=== PATIENT | male | born 1975 | race Caucasian/White ===

== ENCOUNTER → 2016-10-06 | Day surgery (SDC) | payer BC ==
[~2016-10-06] VITALS: Ht 182.8 cm; Wt 93.0 kg
[~2016-10-06] MED LIST: OMNICEF300 MG PO; TYLENOL WITH CO1 TA1 PO
--- NOTE | ~2016-10-06 | O ---
[place], [place] OPERATIVE NOTE [id number] UNIT #: [id number] ROOM: DOCTOR: MITRA OCHOA MD BIRTHDATE: [birth year] DOS: 10/06/2016 PREOPERATIVE DIAGNOSIS: Right infraauricular cyst. POSTOPERATIVE DIAGNOSIS: Right infraauricular cyst. PROCEDURE: Excisional biopsy of right infraauricular cyst. SURGEON: Dr. Ochoa. ANESTHESIA: MAC, local. COMPLICATIONS: Tony Maxwell was taken to the OR for excisional biopsy of a presumed sebaceous cyst in the right infraauricular region. DESCRIPTION OF PROCEDURE: After IV sedation was established, the patient was positioned supine on the OR table. The right infraauricular region was prepped and draped in the standard sterile fashion. 2 mL of 1% lidocaine with 1:100,000 epinephrine was injected into the underlying subcutaneous tissue. An elliptical excision of overlying skin was incised. Dissection was continued for removal of what looks like a sebaceous cyst. The excised specimen was submitted to pathology for histologic analysis. Minor bleeding was controlled with electrical cautery. The wound was closed with a running 5-0 monofilament suture and a sterile dressing was applied. At the end of the case, all instrument and sponge counts were correct. The patient was awakened and transported to PACU in satisfactory condition. MITRA OCHOA MD CM:OPRECORD:OPERATIVE NOTE [id number] MITRA OCHOA MD 10/07/16 0949 interface
[2016-10-06 10:50] VITALS: BP 113/63
[2016-10-06 12:53] VITALS: BP 104/72
[2016-10-06 13:00] VITALS: BP 104/72
[2016-10-06 13:15] VITALS: BP 113/74
== END | disposition home or self-care (01) ==
LOC: SDC 10-01 09:30
DX: Q18.1 Preauricular sinus and cyst (principal); L72.8 Other follicular cysts of the skin and subcutaneous tissue; F17.210 Nicotine dependence, cigarettes, uncomplicated